=== PATIENT | female | born 1985 | race Caucasian/White ===

== ENCOUNTER 2017-08-30 05:27 | Emergency (ER) | payer MEDICAID, OTHER ==
[~2017-08-30] VITALS: Ht 162.6 cm; Wt 78.0 kg
[2017-08-30] MEDS ORDERED: KETOROLAC 30 MG/1 ML ONE (07:00)
[2017-08-30] MEDS ORDERED: KETOROLAC 30 MG/1 ML IM ONE (07:00)
[2017-08-30] MEDS ORDERED: ONDANSETRON ODT 4 MG ONE (07:29)
[2017-08-30] MEDS ORDERED: ONDANSETRON ODT 4 MG PO ONE (07:30)
[2017-08-30] MEDS ORDERED: OXYcodone/APAP 5/325MG TABLET ONE (08:06)
[2017-08-30 08:09] VITALS: BP 105/61
[2017-08-30] MEDS ORDERED: OXYcodone/APAP 5/325MG TABLET PO ONE (08:30)
== END 2017-08-30 08:12 | disposition home or self-care (01) ==
LOC: ED 07:55
DX: S02.2XXA Fracture of nasal bones, initial encounter for closed fracture (principal); S01.81XA Laceration without foreign body of other part of head, initial encounter; X58.XXXA Exposure to other specified factors, initial encounter; Y93.89 Activity, other specified; Y92.89 Other specified places as the place of occurrence of the external cause; Y99.8 Other external cause status
CPT/HCPCS: 12016; 70450; 70486; 71101; 72125; 96372; 99284; J1885; Q0162

== ENCOUNTER 2018-05-19 17:24 | Emergency (ER) | payer OTHER, MEDICAID ==
[~2018-05-19] VITALS: Ht 162.6 cm; Wt 85.4 kg
[2018-05-19 17:47] VITALS: BP 122/80
[2018-05-19] MEDS ORDERED: OMEP20TA62 PO (18:11)
[2018-05-19 18:17] LABS: ALANINE AMINOTRANSFERASE 28 U/L (12-78); ALBUMIN 3.9 g/dL (3.4-5.0); ANION GAP 7 mmol/L (5-15); CHLORIDE 111 mmol/L (98-107); CREATININE 0.85 mg/dL (0.55-1.02)
[2018-05-19 18:19] LABS: BASOPHILS # (AUTO) 0.05 x10^3/uL (0-0.1); BASOPHILS % (AUTO) 1 % (0-1); EOSINOPHILS # (AUTO) 0.11 x10^3/uL (0-0.4); EOSINOPHILS % (AUTO) 1 % (1-7); LYMPHOCYTES % (AUTO) 35 % (22-44); MD NO; MEAN CORPUSCULAR HEMOGLOBIN 31.1 pg (27.0-34.8); MEAN CORPUSCULAR VOLUME 91.4 fL (80-100); MEAN PLATELET VOLUME 8.9 fL (7.4-10.4); MONOCYTES % (AUTO) 7 % (2-9); NEUTROPHILS # (AUTO) 5.94 x10^3/uL (1.8-6.8); NEUTROPHILS % (AUTO) 57 % (42-75); PLATELET COUNT 337 x10^3/uL (130-400); RED BLOOD COUNT 4.35 x10^6/uL (3.82-5.3)
[2018-05-19 18:22] LABS: ALKALINE PHOSPHATASE 74 U/L (45-117); BILIRUBIN,TOTAL 0.3 mg/dL (0.2-1.0); TOTAL PROTEIN 7.7 g/dL (6.4-8.2)
[2018-05-19 18:42] LABS: CULTURE INDICATED? YES; MICROSCOPIC INDICATED
[2018-05-19] MEDS ORDERED: ONDANSETRON ODT 4 MG PO ONE (19:30)
[2018-05-19] MEDS ORDERED: HYDROmorphone 1 MG/ML, 1ML IM ONE (19:30)
[2018-05-19] MEDS ORDERED: ONDANSETRON ODT 4 MG ONE (19:43)
[2018-05-19] MEDS ORDERED: HYDROmorphone 2 MG/ML, 1ML ONE (19:44)
[2018-05-19] MEDS ORDERED: MAALOX/HYOSCYAMINE/LIDOCAINE 45 ML BTL ONE (19:44)
[2018-05-19] MEDS ORDERED: MAALOX/HYOSCYAMINE/LIDOCAINE 45 ML BTL PO ONE (20:00)
== END 2018-05-19 20:39 | disposition home or self-care (01) ==
LOC: ED 19:59
DX: K29.00 Acute gastritis without bleeding (principal); Z88.2 Allergy status to sulfonamides
CPT/HCPCS: 36415; 76700; 80053; 81001; 83690; 84703; 85025; 87086; 96372; 99285; J1170; Q0162

== ENCOUNTER 2020-11-14 04:01 | Emergency (ER) | payer MEDICAID, OTHER ==
[~2020-11-14] VITALS: Ht 162.6 cm; Wt 96.5 kg
[~2020-11-14 04:01] MED LIST: OMEP20TA62 PO
[2020-11-14 04:07] VITALS: BP 110/74
--- NOTE | 2020-11-14 04:20 | NUR ---
INITIAL PT CONTACT. PT PRESENTS TO ED C/O RIGHT WRIST AND HAND PAIN S/P GLF WHILE RUNNING. [facility] INTACT. PT DENIES ANY OTHER COMPLAINTS. NO HEAD OR NECK PAIN, NO LOC. ICE APPLIED TO RIGHT WRIST AND EXTREMITY ELEVATED ON PILLOW. PT DENIES ANY ADDITIONAL NEEDS AT THIS TIME. AWAITING ERP. SIGNIFICANT OTHER AT BEDSIDE.
--- NOTE | 2020-11-14 04:30 | NUR ---
PT TO IMAGING
--- NOTE | 2020-11-14 05:53 | NUR ---
THUMB SPICA SPLINT APPLIED TO RIGHT WRIST/HAND. PT TOLERATED WELL. [facility] REMAINS INTACT. AWAITING D/C
--- NOTE | 2020-11-14 06:00 | NUR ---
Patient given discharge instructions and they have confirmed that they understand the instructions. Patient ambulatory with steady gait.
== END 2020-11-14 06:17 | disposition home or self-care (01) ==
LOC: ED 05:24
DX: S63.511A Sprain of carpal joint of right wrist, initial encounter (principal); S63.521A Sprain of radiocarpal joint of right wrist, initial encounter; S60.221A Contusion of right hand, initial encounter; W01.0XXA Fall on same level from slipping, tripping and stumbling without subsequent striking against object, initial encounter; Y93.89 Activity, other specified; Y92.410 Unspecified street and highway as the place of occurrence of the external cause; Y99.8 Other external cause status
CPT/HCPCS: 29125; 99284